=== PATIENT | female | born 1960 | race Caucasian/White ===

== ENCOUNTER 2017-02-28 10:46 | Emergency (ER) | payer OTHER ==
[2017-02-28] MEDS ORDERED: Ketorolac Tromethamine 30 MG/ML VIAL ONE (12:17)
--- NOTE | 2017-02-28 12:55 | RAD ---
RIGHT SHOULDER: Three views HISTORY: Right arm pain. FINDINGS: No fracture or dislocation identified. IMPRESSION: No acute abnormality. POS: [facility]
--- NOTE | 2017-02-28 13:27 | RAD ---
CERVICAL SPINE 3 VIEWS: HISTORY: Neck pain. FINDINGS: Postoperative changes including anterior and posterior fixation at the C3-4 level. Vertebral body he ight and alignment are maintained. No acute fracture, dislocation, or aggressive osseous erosions ar e apparent. Cervicothoracic junction is intact. IMPRESSION: Postoperative changes cervical spine. No acute osseous abnormalities are demonstrated. POS: [facility]
--- NOTE | 2017-02-28 13:27 | RAD ---
THORACIC SPINE 3 VIEWS: HISTORY: Back pain. FINDINGS: Cervicothoracic junction is intact. There are 12 thoracic-type vertebrae. Pedicles are intact. Irving tebral body heights and alignment are within normal limits. No acute fracture or dislocation are kai dent. IMPRESSION: No acute osseous abnormalities of the thoracic spine are demonstrated. POS: [facility]
== END 2017-02-28 13:21 | disposition home or self-care (01) ==
LOC: ERS 10:46
DX: S10.93XA Contusion of unspecified part of neck, initial encounter (principal); F41.9 Anxiety disorder, unspecified; F17.210 Nicotine dependence, cigarettes, uncomplicated; V89.2XXA Person injured in unspecified motor-vehicle accident, traffic, initial encounter
CPT/HCPCS: 72040; 72072; 96372; J1885

== ENCOUNTER 2017-03-16 06:50 | Outpatient (CLI) | payer OTHER, BC | END 2017-03-16 06:51 | disposition home or self-care (01) | LOC: BICMRI 06:50 | PROVIDERS: ATTEND Orthopaedic Surgery | DX: M25.511 Pain in right shoulder (principal); M54.12 Radiculopathy, cervical region; M67.911 Unspecified disorder of synovium and tendon, right shoulder; M99.81 Other biomechanical lesions of cervical region; Z98.1 Arthrodesis status | CPT/HCPCS: 72141 ==

== ENCOUNTER 2018-02-09 12:57 | Inpatient (IN) | payer BC, OTHER, SELFPAY ==
[2018-02-09] MEDS ORDERED: Ondansetron PF 4 MG/2 ML Vial SLOW IVP PRN (14:26)
[2018-02-09] MEDS ORDERED: Sodium Chloride 0.9% 1,000 ML IV SCH ×2 (14:30→15:30)
[2018-02-09] MEDS ORDERED: SUMAtriptan Succinate 6 MG/0.5 ML VIAL SC SCH (14:30)
[2018-02-09] MEDS ORDERED: Ondansetron PF 4 MG/2 ML Vial SLOW IVP SCH (14:30)
[2018-02-09] MEDS: ALPRAZolam 1 MG TAB PO SCH ×2 (15:11→20:56)
[2018-02-09 15:40] LABS: #Basophils 0.1 thou/uL (0.0-0.2); #Eosinphils 0.1 thou/uL (0.0-0.7); #Lymphocytes 1.9 thou/uL (1.20-3.40); #Monocytes 0.5 thou/uL (0.11-0.59); #Neutrophils 3.9 thou/uL (1.40-6.50); %Basophils 1.5 % (0.0-1.0); %Eosinophils 1.2 % (0.0-10.0); %Lymphocytes 29.9 % (21.0-51.0); %Neutrophils 60.4 % (42.0-75.0); Hemoglobin 14.8 g/dL (12.0-16.0); Mean Corpuscular HGB CONC 33.2 g/dL (32.0-36.0); Mean Corpuscular Hemoglobin 32.3 pg (27.0-31.0); Mean Corpuscular Volume 97.4 fL (78.0-98.0); Mean Platelet Volume 8.2 fL (7.4-10.4); Platelet Count 249 thou/uL (130-400); RBC Distribution Width 12.1 % (11.5-14.5); Red Blood Cell (RBC) Count 4.57 mill/uL (4.20-5.40); White Blood Cell (WBC) Count 6.5 thou/uL (4.8-10.8)
[2018-02-09 15:49] VITALS: BMI 21.5
[2018-02-09 16:03] LABS: ALT (SGPT) 16 U/L (8-55); AST (SGOT) 16 U/L (5-34); Albumin 4.1 g/dL (3.5-5.0); Alkaline Phosphatase 87 U/L (40-150); Anion Gap 9 mmol/L (10-20); BUN (Urea Nitrogen) 6 mg/dL (9.8-20.1); Bilirubin, Total 0.5 mg/dL (0.2-1.2); Calc. Creatinine Clearance 84 mL/min (70-130); Calcium 9.1 mg/dL (7.8-10.44); Carbon Dioxide 25 mmol/L (22-29); Chloride 107 mmol/L (98-107); Estimated GFR-MDRD 90; Globulin 2.4 g/dL (2.4-3.5); Glucose 80 mg/dL (70-105); Potassium 3.9 mmol/L (3.5-5.1); Protein, Total 6.5 g/dL (6.0-8.3); Sodium 137 mmol/L (136-145)
--- NOTE | 2018-02-09 16:27 | RAD ---
TWO VIEWS CHEST: Comparison: 09-06-14 History: Pneumonia, COPD. FINDINGS: Two views of the chest show normal sized cardiomediastinal silhouette. There is no evidence of consol idation, mass, or pleural effusion. The bones are unremarkable. IMPRESSION: No evidence of acute cardiopulmonary disease. POS: [facility]
[2018-02-09 19:16] LABS: Bilirubin Negative (Negative); Blood, Urine Negative (Negative); Clarity CLEAR (Clear); Glucose, Urine (Dipstick) Negative (Negative); Leukocyte Negative (Negative); Nitrite Negative (Negative); Protein, Urine (Dipstick) Negative (Neg-Trace); Specific Gravity, Urine 1.004 (1.002-1.036)
[2018-02-09 19:21] LABS: Bacteria/HPF None Seen HPF (None Seen); Hyaline Casts/LPF 0-3 HYALINE CAST LPF (0-3 Hyaline); RBC/HPF None Seen HPF (0-3); Squamous Epithelial None Seen HPF (0-3); WBC/HPF None Seen HPF (0-3)
[2018-02-09] MEDS ORDERED: Zolpidem Tartrate 5 MG TAB PO PRN (20:11)
[2018-02-09] MEDS: Sodium Chloride 0.9% 1,000 ML IV SCH ×2 (20:55→21:13)
--- NOTE | 2018-02-10 01:33 | HP ---
DATE OF ADMISSION: 02/09/2018 CHIEF COMPLAINT ON ADMISSION: Dehydration. HISTORY OF PRESENT ILLNESS: The patient is a 57-year-old female who for the past week has had persis tent nausea that has progressed to nausea, vomiting and diarrhea that has caused her to have signific ant weight loss and increasing weakness. Finally, in the last 48 hours, while the diarrhea has pennie d, she has been unable to hold hardly any liquids down. She gets lightheaded whenever she stands. A ttempts were made to treat her as an outpatient with Zofran orally and attempts to push the fluid. T his has been unsuccessful and that she has nearly passed out several times and has been running a fev er up to 101.9. She hurts from head to toe, sore throat, headache. In the office, she was screened for flu. This test returned negative. She is put into the hospital for fluid rehydration and resusc itation and serial reevaluation. PAST MEDICAL HISTORY: Long history of anxiety disorder, hyperlipidemia. She has a history of migrai chaz and has had noncardiac chest pain in the past. PAST SURGICAL HISTORY: Positive for appendectomy, cholecystectomy, hysterectomy, tonsillectomy, spin al surgery and neck surgery. PAST PSYCHIATRIC HISTORY: Significant for severe anxiety and stress disorder. SOCIAL HISTORY: Smokes 1 pack per day for many years. Denies alcohol use. Denies drug use. She is , is a housewife. ALLERGIES: Known allergies to the FLU and PNEUMOCOCCAL VACCINE. MEDICATIONS: On admission, alprazolam 2 mg t.i.d., Zofran 8 mg ODT. REVIEW OF SYSTEMS: Generally is positive for fever, malaise, diffuse body aches. HEENT: Significan t for headache, occasional episodes of blurred vision, nausea. She denies sores in her ears, nose or throat. Chest: Denies coughing or dyspnea. Cardiac: Denies chest pain or palpitations. Gastroin testinal: Significant for protracted nausea and vomiting. No specific areas of pain. Genitourinary : Denies any blood in urine or stool or dysuria or frequency. Musculoskeletal: Has generalized taisha dy aches in all her main muscle groups, but otherwise no acute joint swelling or erythema. Skin: Wilkes s no new rashes or lesions. Lymphatics: No areas of swelling, bruising noted. Neurological: Signi ficant for headache and generalized weakness, but denies any areas of hypoesthesia or anesthesia. PHYSICAL EXAMINATION: VITAL SIGNS: Blood pressure is 131/75, pulse at 65, respirations 16, O2 sat 100%, temperature 97.5. GENERAL: This is a weak, lethargic female, responsive to questions. HEENT: Normocephalic and atraumatic. Pupils equal, round and reactive to light. Eyebrows are sunke n. TMs clear. Nares clear. Pharynx is dry. NECK: Supple. No significant adenopathy. CHEST: With generally diminished breath sounds. No active wheezing or rhonchi. HEART: Regular rate and rhythm. No murmur. BREAST: Deferred. ABDOMEN: Without hepatosplenomegaly or tenderness. GENITOURINARY: Deferred. EXTREMITIES: Without clubbing, cyanosis or edema. Generalized weakness noted. SKIN: With poor turgor and tenting. NEUROLOGIC: Cranial nerves are intact. Gait and cerebellar function intact. Sensory exam is grossl y intact. Mental status significant for slowed mentation. LABORATORY DATA: Lab work is pending at the time of admission. ASSESSMENT: 1. Protracted viral gastroenteritis with secondary dehydration. 2. Migraine headache, protracted and unresponsive to outpatient treatment. PLAN: IV fluid resuscitation. Serial reevaluation. Antiemetics. We will begin with sumatriptan simmons bcu and reevaluate the patient serially.
[2018-02-10 05:19] LABS: #Basophils 0.1 thou/uL (0.0-0.2); #Eosinphils 0.2 thou/uL (0.0-0.7); #Lymphocytes 2.6 thou/uL (1.20-3.40); #Monocytes 0.5 thou/uL (0.11-0.59); %Basophils 1.4 % (0.0-1.0); %Eosinophils 3.1 % (0.0-10.0); %Lymphocytes 49.7 % (21.0-51.0); %Monocytes 8.6 % (0.0-10.0); %Neutrophils 37.3 % (42.0-75.0); Hemoglobin 11.9 g/dL (12.0-16.0); Mean Corpuscular HGB CONC 33.3 g/dL (32.0-36.0); Mean Corpuscular Hemoglobin 32.5 pg (27.0-31.0); Mean Corpuscular Volume 97.7 fL (78.0-98.0); Mean Platelet Volume 9.3 fL (7.4-10.4); Platelet Count 197 thou/uL (130-400); RBC Distribution Width 12.1 % (11.5-14.5); Red Blood Cell (RBC) Count 3.65 mill/uL (4.20-5.40); White Blood Cell (WBC) Count 5.3 thou/uL (4.8-10.8)
[2018-02-10 05:38] LABS: Anion Gap 10 mmol/L (10-20); BUN (Urea Nitrogen) 5 mg/dL (9.8-20.1); Calc. Creatinine Clearance 79 mL/min (70-130); Calcium 7.9 mg/dL (7.8-10.44); Carbon Dioxide 21 mmol/L (22-29); Chloride 110 mmol/L (98-107); Estimated GFR-MDRD 84; Glucose 68 mg/dL (70-105); Potassium 4.1 mmol/L (3.5-5.1); Sodium 137 mmol/L (136-145)
[2018-02-10] MEDS: Sodium Chloride 0.9% 1,000 ML IV SCH ×2 (06:03→12:15)
[2018-02-10] MEDS: ALPRAZolam 1 MG TAB PO SCH ×2 (08:39→15:57)
[2018-02-10 11:48] VITALS: BP 94/61; TEMP 98.7
== END 2018-02-10 16:38 | disposition home or self-care (01) | DRG 392 ==
LOC: T4-A 12:58
PROVIDERS: ADMIT Specialist; ATTEND Specialist
DX: K52.9 Noninfective gastroenteritis and colitis, unspecified (principal); E86.0 Dehydration; F41.9 Anxiety disorder, unspecified; E78.5 Hyperlipidemia, unspecified; F17.210 Nicotine dependence, cigarettes, uncomplicated; Z88.7 Allergy status to serum and vaccine; G43.909 Migraine, unspecified, not intractable, without status migrainosus
CPT/HCPCS: 36415; 71046; 80048; 80053; 81001; 82533; 85025; 85652; 87040; 87086; J2405; J3030

== ENCOUNTER 2019-12-03 01:56 | Inpatient (IN) | payer BC, OTHER ==
[2019-12-03 02:39] LABS: #Basophils 0.1 thou/uL (0.0-0.2); #Eosinphils 0.2 thou/uL (0.0-0.7); #Monocytes 0.5 thou/uL (0.11-0.59); #Neutrophils 4.5 thou/uL (1.40-6.50); %Basophils 1.1 % (0.0-1.0); %Eosinophils 1.8 % (0.0-10.0); %Lymphocytes 43.1 % (21.0-51.0); %Monocytes 5.5 % (0.0-10.0); %Neutrophils 48.5 % (42.0-75.0); Hemoglobin 14.6 g/dL (12.0-16.0); Mean Corpuscular Hemoglobin 32.9 pg (27.0-31.0); Mean Corpuscular Volume 93.9 fL (78.0-98.0); Mean Platelet Volume 8.4 fL (7.4-10.4); Platelet Count 251 thou/uL (130-400); RBC Distribution Width 11.7 % (11.5-14.5); Red Blood Cell (RBC) Count 4.45 mill/uL (4.20-5.40); White Blood Cell (WBC) Count 9.3 thou/uL (4.8-10.8)
[2019-12-03] MEDS ORDERED: Aspirin 325 MG TAB ONE (04:50)
[2019-12-03 04:54] LABS: Bilirubin Negative (Negative); Blood, Urine Negative (Negative); Clarity Clear (Clear); Glucose, Urine (Dipstick) Normal (Negative); Ketone, Urine Negative (Negative); Leukocyte Negative Leu/uL (Negative); Nitrite Negative (Negative); Protein, Urine (Dipstick) Negative (Neg-Trace); Specific Gravity, Urine 1.002 (1.002-1.036); Urobilinogen Normal mg/dL (Less than 2)
[2019-12-03 05:03] LABS: Amphetamine Not Detected (NotDetected); Barbiturates Screen Not Detected (NotDetected); Benzodiazepine Screen Detected (NotDetected); Cocaine Metabolite Screen Not Detected (NotDetected); Medtox Reader # READER 4; Methadone Not Detected (NotDetected); Methamphetamine Not Detected (NotDetected); Opiate Screen Not Detected (NotDetected); Phencyclidine (PCP) Not Detected (NotDetected); THC/Cannabinoid Screen Not Detected (NotDetected); Tricyclic Screen Not Detected (NotDetected)
[2019-12-03 05:04] LABS: Medtox Control Line Valid? VALID (VALID); Oxycodone Screen Not Detected (NotDetected)
[2019-12-03] MEDS ORDERED: Acetaminophen 325 MG TAB PO PRN ×2 (05:54→08:16)
[2019-12-03] MEDS ORDERED: Ondansetron PF 4 MG/2 ML Vial IVP PRN (05:54)
[2019-12-03] MEDS ORDERED: Ondansetron ODT 4 MG TAB SL PRN (05:54)
[2019-12-03] MEDS ORDERED: ALPRAZolam 1 MG TAB PO PRN (05:55)
[2019-12-03 06:18] LABS: Troponin I 0.015 ng/mL (< 0.028)
[2019-12-03 06:27] VITALS: BMI 22.4
--- NOTE | 2019-12-03 07:46 | RAD ---
EXAM: Single view of the chest HISTORY: Chest pain COMPARISON: 10/16/2015 FINDINGS: Single view of the chest shows a normal sized cardiomediastinal silhouette. There is no kai dence of consolidation, mass, or pleural effusion. No acute osseous abnormality. IMPRESSION: No evidence of acute cardiopulmonary disease
--- NOTE | 2019-12-03 07:49 | CT ---
PRELIMINARY REPORT/[facility]/EMERGENCY AFTER HOURS PROCEDURE: EXAM: CT Head Without Intravenous Contrast. CLINICAL HISTORY: Right sided weakness TECHNIQUE: Axial computed tomography images of the head/brain without intravenous contrast. COMPARISON: None provided. FINDINGS: Ventricles and subarachnoid spaces are within normal limits. No abnormal areas of attenuat ion are identified in the brain parenchyma. No mass-effect or evidence of acute intracranial hemorrhage is seen. On bone windows, no fracture or other acute osseous abnormality is seen. There is a small benign corinne stosis in the right frontal parietal region, unchanged. A little bit of motion artifact is noted. IMPRESSION: No acute findings. ELECTRONICALLY SIGNED BY: Jefry Mina MD Dec 03, 2019 3:04:51 AM CDT This report is intended for review by the ordering physician only, in accordance of law. If you recei ve this report in error, please call [facility] at [phone]. FINAL REPORT BRAIN CT WITHOUT IV CONTRAST EMERGENCY AFTER HOURS EXAM [id number] HOURS 12/03/2019: FINDINGS/IMPRESSION: No mass or bleed, or other acute process. This report is in agreement with preliminary report by [facility]. POS: [facility]
[2019-12-03 07:57] LABS: Troponin I Less than 0.010 ng/mL (< 0.028)
[2019-12-03] MEDS ORDERED: Ondansetron ODT 4 MG TAB PO PRN (08:16)
--- NOTE | 2019-12-03 08:55 | HP ---
CHIEF COMPLAINT ON ADMISSION: Chest pain with peripheral neuropathies. HISTORY OF PRESENT ILLNESS: The patient is a 59-year-old female, who has known anxiety disorder, who regularly takes between t.i.d. and q.i.d. Xanax 2 mg, and has done this for many years. Her source of stress has been 90% her family and spouse in particular who has a drinking problem. On this particular episode, she had been having chest pain for quite some time and initiated while in bed, just having a discussion with her . Apparently, he has been disabled from working for over a year and has been following Workmen's Comp recommendations. He recently had surgery on his knee and was informed by his orthopedist that there was extreme amount of adhesions present necessitating the probable need for a knee replacement long before he will be able to go back to work. This added stress upon the long history of anxiety. It is possibly the initiator for her right-sided chest pain, which left her dyspneic and nauseated. She did not throw up. She was not diaphoretic. She has a long smoking history. Has no other history of chest pain. The pain did not go to her right side. She had peripheral neuropathies in her right upper extremity, right lower extremity, which she describes as a numbness and tingling with resultant weakness such that she was unable to move the right side of her body. During examination in the ER, she had return of function of the ability to move the right side of her upper arm and leg. She states she has never had that before. In the ER, her EKG did not reveal ischemia. CT of the head did not reveal an acute process. She is placed in the hospital for further evaluation. She was deemed in the ER to not be a candidate for lytics, should the CT if shown a thrombotic process because of the window of opportunity had closed. PAST MEDICAL HISTORY: Significant for longstanding anxiety, longstanding tobacco abuse. PAST SURGICAL HISTORY: Includes appendectomy, cholecystectomy, hysterectomy, tonsillectomy, spinal surgery, and neck surgery. PSYCHIATRIC HISTORY: Significant for the aforementioned anxiety, but no overt depression in the past. SOCIAL HISTORY: Long-time smoker. Denies alcohol use or illicit drug use. She smokes one pack per day for many years. ALLERGIES: SHE HAS ALLERGIES TO FLU VACCINE AND POSSIBLY THE PNEUMOCOCCAL VACCINE. NO OTHERS ARE CONFIRMED. CURRENT MEDICATIONS: At the time of admission is only her Xanax 2 mg, which she takes up to 4 times a day and has done so for many years (she has not run out early lost prescription or requested any early refills). REVIEW OF SYSTEMS: At the time of admission; CONSTITUTIONAL: Denies chills, fever, or sweats. HEENT: Denies drainage or sores in eyes, ears, nose, or throat. CARDIOVASCULAR: Admitted for the chest pain, but denies any palpitations or diaphoresis. RESPIRATORY: Has chronic shortness of breath, especially at the time of admission, but denies cough or wheezing. GASTROINTESTINAL: Admits to mild nausea, but no vomiting, diarrhea, or constipation. GENITOURINARY: Denies blood in urine or stool or painful urination. MUSCULOSKELETAL: Admits to weakness in her right upper arm and right lower leg, but no obvious deformity and atrophy are noted. SKIN: No new rashes or lesions. NEUROLOGIC: Denies headache, blurred vision, paresthesias, hypesthesias except there is numbness and tingling in the right upper extremity and right lower extremity present on admission and better at this time. PSYCHIATRICAL: She admits to being under great deal of stress and for the most, many of her symptoms may be stress related. PHYSICAL EXAMINATION: VITAL SIGNS: At the time of admission, blood pressure is 121/64, pulse 53, respirations 18, and O2 saturation 99% on room air with a temperature of 98.5. She weighs 130 pounds. GENERAL: This is a well-developed, well-nourished, female, alert, oriented, and cooperative. HEENT: Normocephalic, atraumatic. Pupils are equal, round, and reactive to light. Extraocular muscles are intact. TMs, nares, and pharynx are clear. NECK: Supple. Trachea midline. No mass. No bruit. CHEST: Slightly diminished breath sounds bilaterally, otherwise clear. BREASTS: Deferred. HEART: Regular rate and rhythm without murmur. ABDOMEN: Soft, nontender without organomegaly. GENITOURINARY: Deferred. EXTREMITIES: Without clubbing, cyanosis, or edema. Normal range of motion present. SKIN: Without rashes or lesions. Occasional tattoos noted. NEUROLOGIC: Cranial nerves are intact. Unable to test gait and cerebellar function at this time. Sensory exam is grossly intact. Mental status is appropriate. Nonfocal. The patient notes normal range of motion of all extremities and normal sensation in upper and lower extremities at the time of exam. LABORATORY DATA: Lab work thus far shows WBCs 9.3, hemoglobin 14.6, hematocrit 41.8 with platelets at 251. Sodium is not here. The BNP is not available at the time of dictation. We do have normal troponins, BNP at 31 and creatine kinase 143. We have a normal UA and a drug screen positive only for benzodiazepines. Remainder of lab will be obtained. IMAGING DATA: Chest x-ray, early changes of COPD/emphysema. ASSESSMENT: 1. Chest pain. 2. Peripheral neuropathies. 3. Acute stress reaction. 4. Possible somatization disorder. 5. Tobacco abuse. 6. Early emphysema. PLAN: Will be to finish her cardiac workup with stress test. Echocardiography and neurological consultation for confirmation of the probable stress etiology to her symptomatology. Serial re-evaluation also will be performed. Job ID: [id number]
[2019-12-03] MEDS: ALPRAZolam 1 MG TAB PO SCH ×3 (09:20→16:54)
[2019-12-03] MEDS: Sodium Chloride 0.9% 1,000 ML IV SCH ×2 (09:22→18:38)
[2019-12-03] MEDS: Nicotine 14 MG PATCH TOP SCH (09:22)
[2019-12-03] MEDS: Aspirin Chewable 81 MG TAB PO SCH (09:23)
[2019-12-03] MEDS ORDERED: Ondansetron ODT 8 MG TAB PO PRN (09:27)
[2019-12-03 12:06] LABS: SARS-CoV-2 MS2 Positive; SARS-CoV-2 N Gene Negative; SARS-CoV-2 S Gene Negative; SARS-CoV-2 by NAA Not Detected (NotDetected); SARS-CoV-2 orf1ab Negative
--- NOTE | 2019-12-03 13:04 | NM ---
Radionucleotide stress and rest myocardial perfusion scan with CT attenuation correction and SPECT im aging HISTORY: Chest pain. FINDINGS: Ashkan protocol. Total test time 7:59. Maximum heart rate 137 bpm (84%). There is heterogeneous uptake of radiotracer throughout the left ventricular myocardium. No focal per fusion defect or reversibility. LHR 44%. T.i.d. 1.0. QGS analysis of gated SPECT images shows no focal wall motion abnormalities. Ejection fraction calcul ated at 84%. IMPRESSION : No evidence of ischemia. Normal LVEF.
[2019-12-03] MEDS ORDERED: Sodium Chloride 0.9% 1,000 ML IV SCH (17:15)
--- NOTE | 2019-12-04 00:02 | CON ---
DATE OF CONSULTATION: 12/03/2019 CONSULTING PHYSICIAN: Dr. Miguel Lemus. IMPRESSION: Complex migraine. PLAN: Happy to follow up with her in the clinic. HISTORY OF PRESENT ILLNESS: Ms. Goode is a 59-year-old woman with a long history of migraine headaches. They had become infrequent. She developed a right orbital headache followed by some nausea and right-sided tingling of the arm and leg. She presented to the emergency room for evaluation. Her CT of the brain was negative. Lab work was all unremarkable including a tox screen. Her symptoms have resolved. It has been about a year since she had a bad migraine. She was not aware of any triggers. She otherwise is feeling back to normal at this point. She is having a workup for chest pain also. PAST MEDICAL HISTORY: As listed. ALLERGIES: FLU VACCINE, SHELLFISH, IODINE. FAMILY HISTORY: Unremarkable. SOCIAL HISTORY: Unremarkable. MEDICATIONS: List was reviewed. REVIEW OF SYSTEMS: Ten-system review of systems is otherwise negative. PHYSICAL EXAMINATION: GENERAL: She is a healthy-appearing middle-aged woman, in no acute distress. VITAL SIGNS: Have been stable. She is afebrile. HEENT: Pupils equal and reactive. Conjunctivae clear. NECK: Supple. EXTREMITIES: No cyanosis or edema. SKIN: Clear. NEUROLOGIC: She is alert and appropriate. Her exam is nonfocal. SUMMARY: A middle-aged woman with a recurrent episode of hemicranial headache and some paresthesias. This is commonly seen with migraine. Her workup has been negative. I do not see a need for any further test. Job ID: [id number]
[2019-12-04] MEDS: Sodium Chloride 0.9% 1,000 ML IV SCH (01:47)
[2019-12-04] MEDS: Aspirin Chewable 81 MG TAB PO SCH (08:27)
[2019-12-04] MEDS: ALPRAZolam 1 MG TAB PO SCH ×2 (08:28→12:31)
[2019-12-04] MEDS: Nicotine 14 MG PATCH TOP SCH (08:30)
[2019-12-04 12:38] VITALS: BP 109/70; TEMP 96.4
== END 2019-12-04 14:30 | disposition home or self-care (01) | DRG 103 ==
LOC: ERS 01:56 → 2SW 04:42 → OBSVTOIN 09:08 → 2NO 10:21
PROVIDERS: ADMIT Specialist; ATTEND Specialist
DX: G43.909 Migraine, unspecified, not intractable, without status migrainosus (principal); G62.9 Polyneuropathy, unspecified; J43.9 Emphysema, unspecified; Z20.828 Contact with and (suspected) exposure to other viral communicable diseases; F41.9 Anxiety disorder, unspecified; F17.210 Nicotine dependence, cigarettes, uncomplicated; I95.9 Hypotension, unspecified; Z90.49 Acquired absence of other specified parts of digestive tract; Z73.3 Stress, not elsewhere classified; Z90.710 Acquired absence of both cervix and uterus; Z88.7 Allergy status to serum and vaccine; Z79.899 Other long term (current) drug therapy; Z91.013 Allergy to seafood
CPT/HCPCS: 36415; 70450; 71045; 78452; 80306; 81003; 82533; 82550; 83880; 84443; 84484; 85025; 87635; 93005; 93017; 93306; A9500; G0378; U0003